=== PATIENT | female | born 1985 | race Caucasian/White ===

== ENCOUNTER 2022-02-23 01:58 | Day surgery (SDC) | payer BC, SELFPAY ==
[2022-02-10 14:19] VITALS: BMI 38.3
[2022-02-23 09:12] VITALS: BP 144/81; PULSE 67; RESP 18; TEMP 36.4; O2SAT 100; BMI 37.5
[2022-02-23] MEDS: LACTATED RINGERS 1,000 ML 150 ML IV CONT (09:34)
--- NOTE | 2022-02-23 09:48 | PM.HPGS ---
History of Present Illness History of Present Illness Consent: Risks, benefits, and alternatives have been discussed and questions answered. Patient agrees to proceed with procedure. Chief complaint: nausea, abdominal pain Narrative: Hilary Yap is a 37 year old female here for egd and colonoscopy, she has been having abdominal pain since she was in 2018 finally underwent cholecystectomy, apparently also ercp but no records. Never had colonoscopy, also ibs-c and nausea. Review of Systems Constitutional: Constitutional: Denies headache(s) and Denies weakness Eyes: Eyes: Denies blurry vision ENT: Reports Normal hearing present, Denies headache(s) and Denies neck pain Cardiovascular: Cardiovascular: Denies chest pain and Denies dyspnea Respiratory: Respiratory: Denies dyspnea Gastrointestinal: Gastrointestinal: Reports no additional gastrointestinal complaints Genitourinary: Genitourinary: Denies dysuria Musculoskeletal: Musculoskeletal: Denies neck pain Integumentary/Breasts: Skin/Breast: Denies dry skin Neurologic: Reports Normal hearing present, Denies headache(s) and Denies weakness Psychiatric: Psychiatric: Denies anxiety Endocrine: Endocrine: Denies change in body appearance Hematologic/Lymphatic: Hematologic/Lymphatic: Denies easy bleeding Allergic/Immunologic: Allergic/Immunologic: Denies urticaria PMF Past Medical History Medical History (Updated 01/06/22 @ 11:44 by Dae Pozo MD) Anxiety and depression GERD (gastroesophageal reflux disease) High blood pressure Nausea Peptic ulcer Surgical History Surgical History History of delivery History of cholecystectomy History of D&C History of endometrial ablation History of incisional hernia repair History of laparoscopy Family History Family History Father , age 69 Hypertension Family history of diabetes mellitus in first degree relative Heart disease Mother No problems noted. Social History Social History (Updated 01/06/22 @ 11:28 by Kaila Vaz CMA) Years smoked: 20 Smoking status: Former smoker Tobacco type: cigarettes Alcohol intake: current Alcohol use details: 0-1 Substance use: never Living arrangements: with family Additional occupation/education comments: [employer] Spiritual care concerns: No Meds Home Medications and Allergies Home Medications Medication Instructions Recorded Confirmed Type omeprazole 20 mg capsule,delayed 20 mg PO DAILY 11/18/21 02/23/22 History release ondansetron HCl 4 mg tablet 4 mg PO Q8H PRN #90 tablet 01/06/22 02/23/22 Rx Stool Softener 1 softgel PO PRN 02/10/22 02/23/22 History Allergies Allergy/AdvReac Type Severity Reaction Status Date / Time Sulfa (Sulfonamide Allergy Intermediate Hives Verified 02/23/22 09:23 Antibiotics) metoclopramide [From Reglan] AdvReac Mild panic Verified 02/23/22 09:23 attack Vital Signs Vital Signs - 24 hr 02/23/22 09:12 Temperature 97.5 F L Pulse Rate 67 Respiratory Rate 18 Blood Pressure 144/81 H Pulse Oximetry 100 Exam Const: General: comfortable and no acute distress HENMT: General nose exam: Normal nares present Eyes: General: appearance normal, both eyes and all related structures Neck: Neck: no JVD Resp: Auscultation: clear to auscultation bilaterally Cardio: Rate: regular rate Rhythm: regular rhythm GI: Inspection: non-distended GI Palp: Yes Soft to palpation Skin: General skin exam: normal color Neuro: General: gait normal Speech: normal speech Extrem: General: normal to inspection Psych: Mental Status: mental status grossly normal Assessment and Plan Assessment and plan (1) Abdominal pain: Qualifiers: Abdominal location: unspecified location Qualified
--- NOTE | 2022-02-23 09:50 | P.PNAN_ITS ---
Anes - Initial Pre Proc Eval Procedure: Operation Date: 02/23/22 10:30 Proposed Procedures p Esophagogastroduodenoscopy & Colonoscopy - Dae Pozo MD Date/Time: 02/23/22 09:50 Surgeon: Dae Pozo MD Pre Op Diagnosis: nausea, abdominal pain Patient Data Age: 37 Gender: F Height: 1.7 m Weight: 108.8 kg Last Vital Signs Temp 97.5 F L 02/23/22 09:12 Pulse 67 02/23/22 09:12 Resp 18 02/23/22 09:12 BP 144/81 H 02/23/22 09:12 Pulse Ox 100 02/23/22 09:12 Allergies Allergy/AdvReac Type Severity Reaction Status Date / Time Sulfa (Sulfonamide Allergy Intermediate Hives Verified 02/23/22 09:23 Antibiotics) metoclopramide [From Reglan] AdvReac Mild panic Verified 02/23/22 09:23 attack Home Medications Medication Instructions Recorded Confirmed Type omeprazole 20 mg capsule,delayed 20 mg PO DAILY 11/18/21 02/23/22 History release ondansetron HCl 4 mg tablet 4 mg PO Q8H PRN #90 tablet 01/06/22 02/23/22 Rx Stool Softener 1 softgel PO PRN 02/10/22 02/23/22 History Patient hx anesthesia problems: none Family hx anesthesia problems: none Results Review: All pre-operative results and documents have been reviewed as part of the pre-operative evaluation. [facility] Past Medical History Medical History (Updated 01/06/22 @ 11:44 by Dae Pozo MD) Anxiety and depression GERD (gastroesophageal reflux disease) High blood pressure Nausea Peptic ulcer Surgical History Surgical History History of delivery History of cholecystectomy History of D&C History of endometrial ablation History of incisional hernia repair History of laparoscopy Family History Family History Father , age 69 Hypertension Family history of diabetes mellitus in first degree relative Heart disease Mother No problems noted. Social History Social History (Updated 01/06/22 @ 11:28 by Kaila Vaz CMA) Years smoked: 20 Smoking status: Former smoker Tobacco type: cigarettes Alcohol intake: current Alcohol use details: 0-1 Substance use: never Living arrangements: with family Additional occupation/education comments: [employer] Spiritual care concerns: No Anes - Eval Final PreProcedure Day of Procedure 02/23/22 09:50 Patient weight: obese Heart: regular rate and rhythm Lungs: clear to auscultation Airway: Mallampati scale class II Neurological: alert and oriented Last oral intake: >/= 8 hours ASA classification: III Emergent: no Anesthetic plan: proceed Anesthesia type and monitoring: general GIVS and standard monitoring Results Review: All pre-operative results and documents have been reviewed as part of the pre-operative evaluation. Informed Consent: The patient's anesthetic plan and its attendant risks and benefits were discussed with the patient/family/POA. Questions were solicited and answers provided to the satisfaction of the patient/family/POA.
[2022-02-23 10:22] VITALS: BP 103/56; PULSE 56; RESP 19; O2SAT 100
[2022-02-23 10:32] VITALS: BP 119/77; PULSE 70; RESP 19; O2SAT 100
[2022-02-23 10:42] VITALS: BP 119/73; PULSE 68; RESP 16; O2SAT 100
== END 2022-02-23 11:20 | disposition home or self-care (01) ==
PROVIDERS: PCP Physician Assistant; Referring Provider Surgery; Visit Provider Internal Medicine Gastroenterology
PROC: 0DJ08ZZ Inspection of Upper Intestinal Tract, Via Natural or Artificial Opening Endoscopic (ICD-10-PCS; CPT 43235; principal; 2022-02-23 10:30)
DX: K58.9 Irritable bowel syndrome, unspecified (principal); K64.8 Other hemorrhoids; R14.0 Abdominal distension (gaseous); R10.84 Generalized abdominal pain; R11.0 Nausea; K21.9 Gastro-esophageal reflux disease without esophagitis; Z87.11 Personal history of peptic ulcer disease; E66.9 Obesity, unspecified; Z68.37 Body mass index [BMI] 37.0-37.9, adult; Z87.891 Personal history of nicotine dependence
CPT/HCPCS: 45378; 43239; 88305; J2001; J2704; J7120

== ENCOUNTER 2022-03-29 09:53 | Outpatient (CLI) | payer BC, SELFPAY ==
--- NOTE | ~2022-03-29 | NM_ITS ---
EXAM: NM gastric emptying study DATE: 03/29/2022 14:39 INDICATION: Nausea. TECHNIQUE: A gastric emptying study was performed using the methodology of Mervin SINCLAIR, et al. J Nucl Med 2007; 48:568-572. The patient was given a meal consisting of 2 scrambled eggs labeled with 0.972 mCi Tc-99m sulfur colloid, 2 slices of toast, two packages of jam, and approximately 120 mL of water . Simultaneous anterior and posterior 1-min images of the abdomen were obtained with the patient supi ne at multiple time points over a total period of 4 hours. The geometric mean of anterior and posteri or views was determined, and the percentage retention was calculated for each time point. COMPARISON: None. FINDINGS: Gastric retention of the radiotracer-labeled meal was 74%, 45%, and 28% at the 1-hour, 2-h our, and 4-hour time points, respectively. With this technique, apparent rapid gastric emptying is dye ggested by <30% gastric retention at 1 hour. Delayed gastric emptying is defined by gastric retention of >90% at 1 hour, >60% retention at 2 hours, or >10% retention at 4 hours. IMPRESSION: 1. Delayed gastric emptying. Reviewed, dictated and finalized at location A.
== END 2022-03-29 09:54 | disposition home or self-care (01) ==
PROVIDERS: Visit Provider Internal Medicine Gastroenterology
DX: K30 Functional dyspepsia (principal)
CPT/HCPCS: 78264; A9541

== ENCOUNTER 2024-05-28 13:08 | Outpatient (CLI) | payer OTHER, SELFPAY ==
--- NOTE | 2024-05-28 14:10 | NEURO_ITS ---
Impression: # Complains of numbness in all extremities. # Normal motor/sensory Nerve Conduction Study in all 4 extremities. # Normal needle/EMG exam. # Clinical correlation recommended. Nerve Conduction Studies Anti Sensory Summary Table Stim Site NR Peak (ms) P-T Amp (?V) Site1 Site2 Delta-P (ms) Dist (cm) Sea (m/s) Left Median Anti Sensory (2-3nd Digit) Wrist 2.8 59.6 Wrist 2-3nd Digit 2.8 14.0 50 Wrist 2.9 52.9 Wrist 2-3nd Digit 2.8 14.0 50 Right Median Anti Sensory (2-3nd Digit) Wrist 3.4 45.3 Wrist 2-3nd Digit 3.4 14.0 41 Wrist 3.1 28.4 Wrist 2-3nd Digit 3.4 14.0 41 Left Radial Anti Sensory (Base 1st Digit) Wrist 1.5 58.7 Wrist Base 1st Digit 1.5 0.0 Right Radial Anti Sensory (Base 1st Digit) Wrist 1.9 16.8 Wrist Base 1st Digit 1.9 0.0 Left Sup Fibular Anti Sensory (Ant Lat Mall) 14 cm 3.0 2.2 14 cm Ant Lat Mall 3.0 16.0 53 Right Sup Fibular Anti Sensory (Ant Lat Mall) 14 cm 3.0 10.6 14 cm Ant Lat Mall 3.0 16.0 53 Left Sural Anti Sensory (Lat Mall) Calf 3.3 12.8 Calf Lat Mall 3.3 16.0 48 Right Sural Anti Sensory (Lat Mall) Calf 3.5 16.5 Calf Lat Mall 3.5 16.0 46 Left Ulnar Anti Sensory (5th Digit) Wrist 2.4 50.8 Wrist 5th Digit 2.4 14.0 58 Right Ulnar Anti Sensory (5th Digit) Wrist 2.3 39.9 Wrist 5th Digit 2.3 14.0 61 Motor Summary Table Stim Site NR Onset (ms) O-P Amp (mV) Site1 Site2 Delta-0 (ms) Dist (cm) Sea (m/s) Left Median Motor (Abd Poll Brev) Wrist 3.4 2.4 Elbow Wrist 4.8 28.0 58 Elbow 8.2 2.9 Right Median Motor (Abd Poll Brev) Wrist 3.1 6.4 Elbow Wrist 4.9 27.0 55 Elbow 8.0 3.0 Left Peroneal Motor (Vastus Med) Ankle 3.9 2.4 Popit Ankle 7.1 39.0 55 Popit 11.0 2.1 Right Peroneal Motor (Vastus Med) Ankle 3.5 1.8 Popit Ankle 7.0 38.0 54 Popit 10.5 1.5 Left Tibial Motor (Abd Cueto Brev) Ankle 4.1 1.6 Knee Ankle 8.2 40.0 49 Knee 12.3 1.1 Right Tibial Motor (Abd Cueto Brev) Ankle 4.0 3.5 Knee Ankle 8.0 37.0 46 Knee 12.0 2.3 Left Ulnar Motor (Abd Dig Minimi) Wrist 2.3 8.2 A Elbow Wrist 5.2 30.0 58 A Elbow 7.5 6.0 Right Ulnar Motor (Abd Dig Minimi) Wrist 2.7 5.4 A Elbow Wrist 4.8 28.0 58 A Elbow 7.5 3.1 F Wave Studies NR F-Lat (ms) L-R F-Lat (ms) Left Median (Mrkrs) (Abd Poll Brev) 27.82 0.58 Right Median (Mrkrs) (Abd Poll Brev) 27.23 0.58 Left Peroneal (Mrkrs) (EDB) 46.84 1.57 Right Peroneal (Mrkrs) (EDB) 45.28 1.57 Left Tibial (Mrkrs) (Abd Hallucis) 46.92 0.03 Right Tibial (Mrkrs) (Abd Hallucis) 46.96 0.03 Left Ulnar (Mrkrs) (Abd Dig Min) 25.94 0.19 Right Ulnar (Mrkrs) (Abd Dig Min) 25.75 0.19 EMG Side Muscle Nerve Root Ins Act Fibs Amp Dur Recrt Comment Right 1stDorInt Ulnar C8-T1 Nml Nml Nml Nml Nml Right Ext Indicis Radial (Post Int) C7-8 Nml Nml Nml Nml Nml Right Ext Digitorum Radial (Post Int) C7-8 Nml Nml Nml Nml Nml Right BrachioRad Radial C5-6 Nml Nml Nml Nml Nml Right PronatorTeres Median C6-7 Nml Nml Nml Nml Nml Right Abd Poll Brev Median C8-T1 Nml Nml Nml Nml Nml Right ABD Dig Min Ulnar C8-T1 Nml Nml Nml Nml Nml Right AntTibialis Dp Br Fibular L4-5 Nml Nml Nml Nml Nml
== END 2024-05-28 13:09 | disposition home or self-care (01) ==
DX: G60.9 Hereditary and idiopathic neuropathy, unspecified (principal)
CPT/HCPCS: 95886; 95913

== ENCOUNTER 2025-07-18 02:15 | Day surgery (SDC) | payer OTHER, SELFPAY ==
[2025-07-09 09:05] VITALS: BMI 37.5
--- OUTSIDE RECORDS SUMMARY | 2025-07-18 02:19 | XMS_ITS | Encounter Summary ---
Author Organization [facility] Address [address] [place] [address] Care Team Providers Care Physician Extender Name Role Phone Jamison Lockett PA-C Primary Care Provider [phone] Encounter Details Date Type Department Care Team (Late st Contact Info) Description 06/29/2019 Hospital Follow-up Call [facility] Med/Surg [address] [place] [address] Roxann Valiente RN Social History Tobacco Use Types Packs/Day Years Used Date Smoking Tobacco: Former Smokeless Tobacco: Never Alcohol Use Standard Drinks/Week Comments No 0 (1 standard drink = 0.6 oz pur e alcohol) AUDIT-C Answer Date Recorded Frequency of Alcohol Consumption Never 05/22/2019 Average Number of Drinks Not on file 019 Frequency of Binge Drinking Not on file 05/09 Comments No Sex and Gender Information Value Date Recorded Sex Assigned at Not on file Legal Sex Female 7:52 PM CDT Gender Identity Not on file Sexual Orientation Not on file documented as of this encounter Functional Status * RETIRED Are you deaf or do you have serious difficulty hearing Answer Date of Assessment Author Status No 06/21/2019 4:02 PM CDT Activ e * RETIRED Are you blind or do you have serious difficulty seeing, even when wearing glasses? Answer Date of Assessment Author Status No 06/21/2019 4:02 PM CDT Activ e * Do you have serious difficulty walking or climbing stairs? Answer Date of Assessment Author Status No 06/21/2019 4:02 PM CDT Cooper Snyder RN Active * Do you have difficulty dressing or bathing? Answer Date of Assessment Author Status No 06/21/2019 4:02 PM MOET Snyder, Frederick, RN Active * Because of a physical, mental, or emotional condition, do you have difficulty doing errands alone such as visiting a doctor's office or shopping? Answer Date of Assessment Author Status No 06/21/2019 4:02 PM CDT Cooper Snyder RN Active documented as of this encounter Mental Status * Because of a physical, mental, or emotional condition, do you have serious difficulty concentrating, remembering, or making decisions? 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
--- OUTSIDE RECORDS SUMMARY | 2025-07-18 02:19 | XMS_ITS | Encounter Summary ---
Author Organization [facility] Address [address] [place] [address] Care Team Providers Care Sales Service Assistant Name Role Phone Jamison Lockett PA-C Primary Care Provider [phone] Encounter Details Date Type Department Care Team (Late st Contact Info) Description 08/07/2019 Therapy Plan [facility] [address] [place] [address] Joe Ndiaye MD [address] [place] [phone] Social History Tobacco Use Types Packs/Day Years [...] Answer Date of Assessment Author Status No 07/22/2019 6:37 PM CDT Activ e * RETIRED Are you blind or do you have serious difficulty seeing, even when wearing glasses? Answer Date of Assessment Author Status No 07/22/2019 6:37 PM CDT Activ e * Do you have serious difficulty walking or climbing stairs? Answer Date of Assessment Author Status No 07/22/2019 6:37 PM CDT Melissa Matthew RN Active * Do you have difficulty dressing or bathing? Answer Date of Assessment Author Status No 07/22/2019 6:37 PM Melissa Muñoz RN Active * Because of a physical, mental, or emotional condition, do you have difficulty doing errands alone such as visiting a doctor's office or shopping? Answer Date of Assessment Author Status No 07/22/2019 6:37 PM Melissa Muñoz RN Active documented as of this encounter Mental Status * Because of a physical, mental, or emotional condition, do you have serious difficulty concentrating, remembering, or making decisions? Answer Entry Date Author Status No 07/22/2019 6:37 PM Melissa Muñoz RN Active documented in this encounter Plan of Treatment Not on file documented as of this encounter Visit Diagnoses Not on filedocumented in this encounter Additional Health Concerns Infection Onset Date Last Indicated Resolved Time MRSA Comment:09/12/19- + abdominal wound 09/19/19- + abdominal wound 09/16/2019 09/16/2019 COVID-19 Rule Out 06/17/2020 06/11/2020 06/17/2020 7:27 AM CDT COVID-19 Rule Out 02/08/2021 02/08/2021 08/30/2021 6:25 PM MASSEUR/MASSEUSE COVID-19 Rule Out 02/08/2021 02/08/2021 08/30/2021 6:27 PM MASSEUR/MASSEUSE COVID-19 Rule Out 12/25/2023 12/25/2023 12/25/2023 8:57 AM CDT documented as of this encounter Care Teams Sales Service Assistant Relationship Specialty Start Date End Date Jamison Lockett PA-C PCP - General 01/09/19 documented as of this encounter
--- OUTSIDE RECORDS SUMMARY | 2025-07-18 02:19 | XMS_ITS | Clinical Summary ---
Author Organization [facility] Address [address] [place] [address] Care Team Providers Care Rail Flaw Detector Operator Name Role Phone Jamison Lockett PA-C Primary Care Provider [phone] Source Comments [facility],non-owned Affiliates and Associated Physician Practices is amultiple site organization consisting of ambulatory clinics and hospital sitesin [place], [place], [place] and [place]. This disclosure is being madepursuant to the Care Everywhere program and may not contain all information available regarding this patient. Last updated 18.[facility] Allergies Active Allergy Reactions Criticality Noted Date Comments Metoclopramide Rash,Other High 11/19/2012 tachycardia , arrhythmia's Sulfa Drugs Urticaria Medium 01/03/2018 Medications * Be aware that medications may not be up to date on this document. Alwaysverify current medications with the patient. calcium carbonate (TUMS) 500 MG chew tablet Take by mouth 3 times daily as needed for Heartburn Active lisinopril-hydr oCHLOROthiazide (PRINZIDE; ZESTORETIC) 10-12.5 MG tablet Take 1 tablet by mouth once daily Active ibuprofen (MOTRIN) 800 MG tablet Take 1 tablet by mouth every 6 hours as needed for Pain 60 tablet 0 Active Active Problems Patient Care Coordination No te Formatting of this note migh t be different from the original. NOPP-MFCC 12/2017 Problem Noted Date Diagnosed Date Menorrhagia with irregular cycle 08/28/2020 Chronic hypertension 02/01/2018 History of thrombocytopenia 09/06/2012 Overview (02/01/2018): On Lovenox plts 162 on 12/19/17 History of section 05/10/2012 Overview (08/02/2012): Need op report Desires repeat Antiphospholipid antibody positive 05/10/2012 Overview (10/15/2012): Anti Factor 10a: less than 0.15 Component Name 10/08/12 0946 09/06/12 1053 06/07/12 1145 WBC 7.4 6.9 8.1 HGB 12.0 12.6 13.5 HCT 34.3* 37.0 37.8 PLTCOUNT 136* 128* 150 Resolved Problems Problem Noted Date Diagnosed Date Resolved Date Abdominal pain, generalized 01/20/2019 08/25/2020 Decreased movements in third trimester 8 08/25/2020 02/15/2018 07/17/2018 History of gestational diabe karie mellitus (GDM) 02/01/2018 08/25/2020 Overview (02/01/2018): In previous . Was on glyburide Supervision of high risk pre gnancy in first trimester 02/01/2018 08/25/2020 Gestational diabetes mellitus 10/29/2012 02/01/2018 Overview (11/05/2012): Glyburide started 11/05/12 Supervision of other high-risk 05/10/2012 02/01/2018 Overview (08/16/2015): Dating by LMP = documented 6wk US (Girl) Prenatals: B+/I/-/-, HIV NR Ab: neg Pap: neg 05/10/12 GC/CT: neg/neg H/H/Plt: 13.6/37.7/160 (05/03/12); 12/34.3/136 (10/08) QS: declines any testing including amnio GCT: 94 GBS: neg ALT/AST: 46/24 12/03 Obesity in 05/10/2012 020 Encounter for anatomic survey 07/17/2018 20 weeks gestation of 07/17/2018 Evaluate anatomy not seen on prior sonogram 07/17/2018 28 weeks gestation of 07/17/2018 Hypertension affecting pregn elma in third trimester 08/25/2020 32 weeks gestation of 07/17/2018 Oligohydramnios in third trimester 08/25/2020 Immunizations Immunization Administration Dates Next Due INFLUENZA VACCINE 07/05/2012 INFLUENZA VACCINE, QUADR. (F LUZONE; FLULAVAL; FLUARIX; AFLURIA QUADRIVALENT; 6MO+), 0.5 ML (IIV4) 07/16/2018 TDAP (7yrs+) 06/04/2018,12/11/2012 Family History Medical History Relation Name Comments Diabetes Father Hyperlipidemia Father Hypertension Father Clotting Disorder Sister Relation Name Status Comments Father Sister Social History Tobacco Use Types Packs/Day Years Used Date Smoking Tobacco: Every Day Cigarettes 0.5 18 Smokeless Tobacco: Never Tobacco Cessation:Counseling Given: Yes Alcohol Use Standard Drinks/Week Comments No 0 (1 standard drink = 0.6 oz pur e alcohol) Comments No Sex and Gender Information Value Date Recorded Sex Assigned at Not on file Legal Sex Female 6:30 AM SAFETY PERSON Gender Identity Not on file Sexual Orientation Not on file Last Filed Vital Signs Vital Sign Reading Time Taken Comments Blood Pressure 120/76 08/28/2020 9:45 AM SAFETY PERSON Pulse 57 08/28/2020 9:45 AM SAFETY PERSON Temperature 36.8 C (98.2 F) 08/28/2020 9:12 AM SAFETY PERSON Respiratory Rate 17 08/28/2020 9:05 AM SAFETY PERSON Oxygen Saturation 99% 08/28/2020 9:45 AM SAFETY PERSON Inhaled Oxygen Concentration 98% 12/11/2012 1 2:05 AM SAFETY PERSON Weight 94.4 kg (208 lb 1.8 oz) 08/28/2020 6:35 AM SAFETY PERSON Height 170.2 cm (5' 7) 08/28/2020 6:35 AM SAFETY PERSON Body Mass Index 32.6 08/28/2020 6:35 AM SAFETY PERSON Plan of Treatment Upcoming Encounters Date Type Department Care Team (Late st Contact Info) Description 07/29/2025 8:30 AM CDT Appointment [facility] [address] [place] [address] Chayito Reynolds Gertrudis, TRANSACTIONAL ATTORNEY-STUDENT ACCOUNTS MANAGER [address] [id number] Health Maintenance Due Date Last Done Comments HEPATITIS C SCREENING 02/08/2005 HEPATITIS B VACCINE (1 of 3 - 19+ 3-dose series) 2006 PNEUMOCOCCAL VACCINE (1 of 2 - PCV) 2006 HPV VACCINE (1 - 3-dose SCDM series) 2014 PAP with HPV 02/01/2023 02/01/2018 DEPRESSION SCREENING 10/09/2024 COVID-19 VACCINE (1 - 2023-2 5 season) 2025 INFLUENZA VACCINE (#1) 2025 8, 07/05/2012 DTAP/TDAP/TD VACCINES (3 - T d or Tdap) 06/04/2028 06/04/2018, 12/11/2012 ZOSTER VACCINE (1 of 2) 2037 HIV SCREENING Completed 06/04/2018, 02/15/2018 HIB VACCINE Aged Out No longer eligi ble based on patient's age to complete this topic MENINGOCOCCAL (Group B) VACCINE SHARED DECISION-MAKING Aged Out No longer eligible based on patient's age to complete this topic MENINGOCOCCAL GROUPS A/C/Y/W VACCINE Aged Out No longer eligible b ased on patient's age to complete this topic Medical Devices Implanted Type Area Case Management Rn Device Identifier Shelf Expiration Date Model / Serial / Lot Patch Srg Sgprg Opn Bioresbl Slf Xpd Implanted:Qty: 1 on 01/25/2019 by Gisele Liu MD at [facility] N/A: Abdomen [employer] 05/05/2019 [id number] / / [id number] Procedures Procedure Name Priority Date/Time Associated Diagnosis Comments HIV-1 HIV-2 ANTIBODY + HIV P24 AG PANEL Routine 06/04/2018 12:26 PM CDT Supervision of high-risk , third trimester PAP LB HPV HR DNA Routine 02/01/2018 11: 17 AM CDT , unspecified gestational age from Last 3 Months or Most Recently Relevant to Health Maintenance Results * HIV-1 HIV-2 ANTIBODY + HIV P24 AG PANEL (06/04/2018 12:26 PM CDT) HIV1/2 Ab + P24 Ag Non Reactive Non Reactive 06/04/2018 4:57 PM CDT [facility] Blood BLOOD SPECIMEN / Unknown Venipuncture / Unknown 06/04/2018 12:26 PM CDT 06/04/2018 12:35 PM CDT Narrative [facility] - 06/04/2018 4:57 PM CDT No Laboratory evidence of HIV infection. us Abigail Sánchez MD LAB - CHEMISTRY ORDERABLES nal Result [facility] [address] [place] [id number] * PAP LB HPV HR DNA (02/01/2018 11:17 AM CDT) Diagnosis Comment 02/07/2018 3:17 PM CDT [facility] ([facility]) Comment:NEGATIVE FOR INTRAEP ITHELIAL LESION AND MALIGNANCY. Specimen Adequacy Comment 018 3:17 PM CDT [facility] ([facility]) Comment: Satisfactory for evaluation. Endocervical and/or squamous metaplastic cells (endocervical component) are present. Performed by Comment 02/07/2018 3:17 PM CDT [facility] ([facility]) Comment:Anisa Gipson, Cyto technologist (ASCP) Comment . 02/07/2018 3:17 PM CDT [facility]) Note Comment 02/07/2018 3:17 PM CDT [facility] ([facility]) Comment: The Pap smear is a screening test designed to aid in the detection of premalignant and malignant conditions of the uterine cervix. It is not a diagnostic procedure and should not be used as the sole means of detecting cervical cancer. Both false-positive and false-negative reports do occur. Human papillomavirus High Risk Negative Negative 02/07/2018 3:17 PM CDT [facility] ([facility]) Comment: This high-risk HPV test detects thirteen high-risk types (16/18/31/33/35/39/45/51/52/56/58/59/68) without differentiation. Pathology/Cytolo gy ENTIRE ENDOCERVIX / Unknown Collection / Unknown 02/01/2018 11:17 AM CDT 02/01/2018 11:56 AM CDT Narrative [facility] ([facility]) - 02/07/2018 3:17 PM CDT Performed at: - [address] [id number] Percussion Tuner: Page Montejo MD, Phone: [phone] Performed at: - [facility] [id number] Percussion Tuner: Page Montejo MD, Phone: [phone] Specimen Comment: Source.............Endocervix Specimen Comment: No. of containers..01 ThinPrep Vial Pita Song TRANSACTIONAL ATTORNEY-STUDENT ACCOUNTS MANAGER LAB - PATHOLOGY/CYTOLOGY ORDERABLES Final Result [facility] ([facility]) [address] [place] [address] from Last 3 Months or Most Recently Relevant to Health Maintenance Insurance [employer] MEDICA[employer] - [place] Advance Directives * Full Code (Latest Code Status on File) Date Activated Date Inactivated Comments 01/20/2019 7:36 PM 01/21/2019 1:56 PM * Full Code Date Activated Date Inactivated Comments 08/09/2018 3:57 PM 08/11/2018 3:16 PM * Full Code Date Activated Date Inactivated Comments 07/24/2018 7:15 PM 07/24/2018 11:05 PM * Full Code Date Activated Date Inactivated Comments 03/29/2018 7:09 PM 03/31/2018 1:40 AM * Full Code Date Activated Date Inactivated Comments 03/29/2018 5:08 PM 03/29/2018 7:09 PM Care Teams Rail Flaw Detector Operator Relationship Specialty Start Date End Date Jamison Lockett PA-C [address] [place] [phone] PCP - General Physician Numerical Control Programmer 01/17/19
--- OUTSIDE RECORDS SUMMARY | 2025-07-18 02:19 | XMS_ITS | Clinical Summary ---
Author Organization [facility] Address [address] [place] [address] Care Team Providers Care Master [place] Name Role Phone Jamison Lockett PA-C Primary Care Provider [phone] Allergies Active Allergy Reactions Criticality Noted Date Comments Metoclopramide Shortness of Breath High 06/18/2019 Sulfa Antibiotics Hives High 10/12/2017 Medications famotidine 20 MG tablet Take 1 tablet (20 mg total) by mouth 2 (two) times daily. 20 tablet 0 Active FLUoxetine (PROZAC) 20 MG capsule Take 1 capsule (20 mg total) by mouth every morning. Active FLUoxetine (PROZAC) 40 MG capsule Take 1 capsule (40 mg total) by mouth nightly at bedtime. Active promethazine (PHENERGAN) 25 MG tablet Take 1 tablet (25 mg total) by mouth every 6 (six) hours as needed (nausea, vomiting, abdominal pain). 30 tablet 4 Active ondansetron (ZOFRAN) 4 MG tablet Take 1 tablet (4 mg total) by mouth every 8 (eight) hours as needed for Nausea. 20 tablet 4 Active lisinopril (PRINIVIL) 10 MG tablet Take 1 tablet (10 mg total) by mouth daily. 5 Active Active Problems Problem Noted Date Diagnosed Date Facial laceration 09/03/2024 Intractable nausea and vomiting 03/01/2024 Acute cholecystitis 08/20/2019 Calculus of gallbladder with chronic cholecystitis without obstruction 08/13/2019 Overview (08/13/2019): Added automatically from request for surgery [id number] Vitamin K deficiency 08/06/2019 Antiphospholipid antibody syndrome (HHS/HCC) Cholecystitis 07/21/2019 Abdominal pain 07/21/2019 Pancreatitis ([facility]) 06/21/2019 Choledocholithiasis 06/19/2019 Common bile duct stone 06/18/2019 Cholelithiasis 06/18/2019 Incisional hernia without obstruction or gangren e 01/09/2019 Right lower quadrant abdominal pain 01/09/2019 Chronic hypertension 02/01/2018 History of gestational diabetes mellitus (GDM) 0 02/01/2018 Overview (06/18/2019): Overview: In previous . Was on glyburide Acute URI 10/12/2017 Overview (06/18/2019): Date Onset: 10/12/2017 Tobacco abuse 06/16/2015 Overview (06/18/2019): Date Onset: 06/16/2015 History of thrombocytopenia 09/06/2012 Overview (06/18/2019): Overview: On Lovenox plts 162 on 12/19/17 Antiphospholipid antibody positive 05/10/2012 Overview (06/18/2019): Overview: Anti Factor 10a: less than 0.15 Component Name 10/08/12 0946 09/06/12 1053 06/07/12 1145 WBC 7.4 6.9 8.1 HGB 12.0 12.6 13.5 HCT 34.3* 37.0 37.8 PLTCOUNT 136* 128* 150 History of section 05/10/2012 Overview (06/18/2019): Overview: Need op report Desires repeat Obesity in ([facility]) 05/10/2012 Encounters Date Type Department Care Team Description 06/09/2025 7:03 PM CDT - 06/09/2025 10:53 PM CDT Emergency [facility] Emergency Services [facility] [address] [address] Renaldo Gleason MD Vomiting Discharge Disposition: Home or Self Care (Routine Discharge) 06/09/2025 Travel from Last 3 Months Immunizations Immunization Administration Dates Next Due Tdap (Generic) 05/03/2022 Family History Medical History Relation Comments COPD Father Diabetes Father Heart Disease Father Hyperlipidemia Father Hypertension Father Heart Disease Mother Hyperlipidemia Mother Hypertension Mother Mental Health Mother Relation Status Comments Father Mother Social History Tobacco Use Types Packs/Day Years Used Date Smoking Tobacco: Former Cigarettes 1 15 2 006 - 2020 Smokeless Tobacco: Never Tobacco Cessation:Counseling Given: Yes Alcohol Use Standard Drinks/Week Comments No 0 (1 standard drink = 0.6 oz pur e alcohol) B1300 Health Literacy Answer Date Recor ded How often do you need to hav e someone help you when you read instructions, pamphlets, or other written material from your doctor or pharmacy? Never 03/01/2024 [facility] Utilities Answer Date Recorded In the past 12 months has e [employer], gas, oil, or water [email or web address] threatened to shut off services in your home? No 03/02/2024 Humiliation, Afraid, Rape, and Kick questionnair e Answer Date Recorded Within the last year, have y ou been afraid of your partner or ex-partner? No 03/01/2024 Within the last year, have y ou been humiliated or emotionally abused in other ways by your partner or ex-partner? No Within the last year, have y ou been kicked, hit, slapped, or otherwise physically hurt by your partner or ex-partner? No 03/01/2024 Within the last year, have y ou been raped or forced to have any kind of sexual activity by your partner or ex-partner? No 03/01/2024 Social Connection and Isolation Panel [NHANES] A nswer Date Recorded In a typical week, how many times do you talk on the phone with family, friends, or neighbors? Twice a week 03/02/2024 How often do you get together with friends or re latives? Once a week 03/02/2024 How often do you attend jehovah's witness or anglican serv ices? Never 03/02/2024 Do you belong to any clubs o r organizations such as jehovah's witness groups, unions, fraternal or athletic groups, or school groups? No 03/02/2024 How often do you attend meet ings of the clubs or organizations you belong to? Never 03/02/2024 Are you , , di vorced, , never , or living with a partner? 03/02/2024 AUDIT-C Answer Date Recorded Q1: How often do you have a drink containing alcohol? Never 03/01/2024 Q2: How many drinks containi ng alcohol do you have on a typical day when you are drinking? Patient does not drink Q3: How often do you have si x or more drinks on one occasion? Never 03/01/2024 Overall Financial Resource Strain (CARDIA) Answe r Date Recorded How hard is it for you to pa y for the very basics like food, housing, medical care, and heating? Not hard at all 03/01/2024 PHQ-2 Answer Date Recorded Patient Health Questionnaire-2 Score 0 03/02/2024 [facility] - Occupational Stress Questionnaire Answer Date Recorded Do you feel stress - tense, restless, nervous, or anxious, or unable to sleep at night because your mind is troubled all the time - these days? Not at all 03/02/2024 Exercise Vital Sign Answer Date Recorde d On average, how many days pe r week do you engage in moderate to strenuous exercise (like a brisk walk)? 2 days 03/02/2024 On average, how many minutes do you engage in exercise at this level? 40 min 03/02/2024 Hunger Vital Sign Answer Date Recorded Within the past 12 months, y ou worried that your food would run out before you got the money to buy more. Never true 03/02/20 24 Within the past 12 months, t he food you bought just didn't last and you didn't have money to get more. Never true 03/02/2024 PRAPARE - Transportation Answer Date Re corded In the past 12 months, has l ack of transportation kept you from medical appointments or from getting medications? No 02/07 In the past 12 months, has l ack of transportation kept you from meetings, work, or from getting things needed for daily living? No 03/02/2024 Housing Stability Vital Sign Answer Júnior e Recorded In the last 12 months, was t here a time when you were not able to pay the mortgage or rent on time? No 03/02/2024 In the past 12 months, how m any times have you moved where you were living? 1 03/02/2024 At any time in the past 12 m [facility], were you homeless or living in a skilled nursing (including now)? No 03/02/2024 Comments No Sex and Gender Information Value Date Recorded Sex Assigned at Not on file Legal Sex Female 7:52 PM CDT Gender Identity Not on file Sexual Orientation Not on file Last Filed Vital Signs Vital Sign Reading Time Taken Comments Blood Pressure 122/86 06/09/2025 7:05 PM CDT Pulse 88 06/09/2025 7:05 PM CDT Temperature 36.3 C (97.3 F) 06/09/2025 7:05 PM CDT Respiratory Rate 20 06/09/2025 7:05 PM CDT Oxygen Saturation 84% 06/09/2025 7:10 PM CDT Inhaled Oxygen Concentration - - Weight 104.3 kg (230 lb) 06/09/2025 7:05 PM CDT Height 170.2 cm (5' 7) 06/09/2025 7:05 PM CDT Body Mass Index 36.02 06/09/2025 7:05 PM CDT Plan of Treatment Health Maintenance Due Date Last Done Comments Cervical Cancer Screening Pap Smear (Age 30 to 64) Every 3 Years 1987 Annual Physical 1990 Hepatitis C 2005 HPV Vaccines (1 - 3-dose SCDM series) 2014 Cervical Cancer Screening Pap with HPV Testing (Age 30 to 64) Every 5 Years 2017 Cervical Cancer Screening with HPV 2017 COVID-19 Vaccine ( season) 2025 Influenza Adult (#1) 2025 07/16/2018, 07/05/20 12 DTaP, Tdap and Td Vaccines (11 - Td or Tdap) 05/03/2032 05/03/2022, 06/04/2018, 10/22/2017, Additional history exists Hepatitis B Vaccines Completed 05/26/1997, 08/30/1996, 07/30/1996 Meningococcal B Vaccine Aged Out No l onger eligible based on patient's age to complete this topic Meningococcal Vaccine Aged Out No viviane eren eligible based on patient's age to complete this topic Pneumococcal Vaccine: Pediatrics (0 to 5 Years) and At-Risk Patients (6 to 49 Years) Aged Out No longer eligible based on patient's age to complete this topic RSV Immunizations Under 20 Months Aged Out No longer eligible based on patient's age to complete this topic Medical Devices Implanted Type Area Human Relations Manager Device Identifier Shelf Expiration Date Model / Serial / Lot Stent Pancreatic 4fr 5cm Straight No Lead Haritha Drainage Hole Advan[employer] Polymer Sterile Disposable Accepts .035in Guidewire - [id number] Implanted:Qty: 1 on 06/19/2019 by Joey Lara MD at [facility] Stent [employer] JORDAN 03/01/2020 [id number] / / [id number] Procedures Procedure Name Priority Date/Time Associated Diagnosis Comments ECG 12-LEAD Routine 06/09/2025 10:06 PM CDT URINALYSIS MICRO ONLY Routine 06/09/2025 7:24 PM CDT TEST URINE STAT 06/09/2025 7:24 PM CDT URINALYSIS AUTO DIP STAT 06/09/2025 7 :24 PM CDT LIPASE STAT 06/09/2025 7:24 PM CDT COMPREHENSIVE METABOLIC PANEL STAT 06/09/2025 7:24 PM CDT CBC W/DIFF AUTOMATED STAT 06/09/2025 7:24 PM CDT from Last 3 Months Results * ECG 12 lead (06/09/2025 10:06 PM CDT) 06/09/2025 10:0 6 PM CDT Narrative [facility] RAD - 06/10/2025 8:54 AM CDT HFG Test Date: 2025-06-09 Pat Name: NAIF OHARA Department: 100 Room: [facility] Gender: Female Day Care Home Mother: : 1985 Requested By: RENALDO GLEASON Order Number: [id number] Reading MD: Mic Bautista Measurements Intervals [place] Rate: 80 P: 20 MS: 149 QRS: 50 QRSD: 99 T: 41 QT: 378 QTc: 439 Interpretive Statements SINUS RHYTHM WITH SINUS ARRHYTHMIA COMPARED TO PREVIOUS TRACING No significant change Procedure Note Mic Bautista MD - 06/10/2025 HFG Test Date: 2025-06-09 Pat Name: NAIF OHARA Department: 100 Room: [facility] Gender: Female Day Care Home Mother: : 1985 Requested By: RENALDO GLEASON Order Number: [id number] Reading MD: Mic Bautista Measurements Intervals [place] Rate: 80 P: 20 MS: 149 QRS: 50 QRSD: 99 T: 41 QT: 378 QTc: 439 Interpretive Statements SINUS RHYTHM WITH SINUS ARRHYTHMIA COMPARED TO PREVIOUS TRACING No significant change us Renaldo Gleason MD ECG ORDERABLES Final Resul t Performing Organization Address [facility] de Phone Number [address] [place] [address] * TEST URINE (06/09/2025 7:24 PM CDT) Pathologist [facility] URINE HCG TEST NEGATIVE NEGATIVE 06/09/2025 7:47 PM CDT [facility] Comment: VERY DILUTE URINE SPECIMENS MAY NOT CONTAIN DELIVERY ROOM CLERK LEVELS OF HCG. IF IS STILL SUSPECTED, A SERUM HCG TEST IS RECOMMENDED. URINE SPECIMEN FROM URETHRA / Unknown 06/09/2025 7:24 PM CDT us Renaldo Gleason MD URINE ORDERABLES Final Resu lt Performing Organization Address [facility] [place] [address], * (ABNORMAL) URINALYSIS AUTO DIP (06/09/2025 7:24 PM CDT) COLOR (U) YELLOW YELLOW 06/09/2025 7:37 PM CDT [facility] TRANSPARENCY HAZY(A) CLEAR 06/09/2025 7:37 PM CDT [facility] SPECIFIC GRAVITY (U) 1.030 1.001 - 1.030 06/09/2025 7:37 PM CDT [facility] Comment:EQUAL TO OR GREATER THAN U PH 6.0 5.0 - 9.0 06/09/2025 7:37 PM CDT [facility] LEUKOCYTES (U) NEGATIVE NEGATIVE 06/09/2025 7:37 PM CDT [facility] NITRITES NEGATIVE NEGATIVE 06/09/2025 7:37 PM CDT [facility] PROTEIN RANDOM (U) 1+(A) NEGATIVE 06/09/2025 7:37 PM CDT [facility] GLUCOSE (U) NORMAL NORMAL 06/09/2025 7:37 PM CDT [facility] KETONES MG/DL (U) 1+(A) NEGATIVE 06/09/2025 7:37 PM CDT [facility] UROBILINOGEN NORMAL NORMAL EU/DL 06/09/2025 7:37 PM CDT [facility] BILIRUBIN (U) NEGATIVE NEGATIVE 06/09/2025 7:37 PM CDT [facility] BLOOD (U) NEGATIVE NEGATIVE 06/09/2025 7:37 PM CDT [facility] URINE MICROSCOPIC URINE MICROSCOPIC TO FOLLOW. 06/09/2025 7:37 PM CDT [facility] URINE SPECIMEN OBTAINED BY CLEAN CATCH PROCEDURE / Unknown 06/09/2025 7:24 PM CDT us Renaldo Gleason MD URINE ORDERABLES Final Resu lt [address] [place] [address], [place] * URINALYSIS MICRO ONLY (06/09/2025 7:24 PM CDT) WBC/HPF 0 <6 /HPF 06/10/2025 11:45 AM CDT [facility] RBC/HPF 0 <6 /HPF 06/10/2025 11:45 AM CDT [facility] MUCUS MODERATE /LPF 06/10/2025 10:44 AM CDT [facility] AMORPHOUS CRYSTAL MODERATE /HPF 06/10/2025 10:44 AM CDT [facility] 06/09/2025 7:24 PM CDT us Renaldo Gleason MD URINE ORDERABLES Final Resu lt [facility] [address] [place] [address], * (ABNORMAL) COMPREHENSIVE METABOLIC PANEL (06/09/2025 7:24 PM CDT) GLUCOSE 174(H) 70 - 99 MG/DL 06/09/2025 7:48 PM CDT [facility] BUN 18 7 - 18 MG/DL 06/09/2025 7:48 PM CDT [facility] CREATININE S/P/B 0.99 0.50 - 1.20 MG/DL 06/09/2025 7:48 PM CDT [facility] SODIUM S/P/B 139 136 - 145 MMOL/L 06/09/2025 7:48 PM CDT [facility] POTASSIUM S/P/B 3.6 3.5 - 5.1 MMOL/L 06/09/2025 7:48 PM CDT [facility] CHLORIDE S/P/B 105 100 - 108 MMOL/L 06/09/2025 7:48 PM CDT [facility] CO2 21.3 21.0 - 32.0 MMOL/L 06/09/2025 7:48 PM CDT [facility] CALCIUM S/P/B 9.9 8.5 - 10.1 MG/DL 06/09/2025 7:48 PM CDT [facility] BILIRUBIN TOTAL S/P/B 0.7 0.2 - 1.2 MG/DL 06/09/2025 7:48 PM CDT [facility] Comment: THIS ASSAY IS NOT RECOMMENDED FOR PATIENTS UNDERGOING TREATMENT WITH ELTROMBOPAG DUE TO THE POTENTIAL FOR FALSELY ELEVATED RESULTS. TOTAL PROTEIN S/P/B 7.7 6.4 - 8.2 G/DL 06/09/2025 7:48 PM CDT [facility] ALBUMIN S/P/B 4.2 3.4 - 5.0 G/DL 06/09/2025 7:48 PM CDT [facility] AST 21 15 - 37 U/L 06/09/2025 7:48 PM CDT [facility] ALT 36 14 - 55 U/L 06/09/2025 7:48 PM CDT [facility] ALKALINE PHOSPHATASE S/P/B 121 50 - 136 U/L 06/09/2025 7:48 PM CDT [facility] ANION GAP 12.7 5.0 - 15.0 MMOL/L 06/09/2025 7:48 PM CDT [facility] BUN CREATININE RATIO 18.2 6 - 26 06/09/2025 7:48 PM T [facility] A/G RATIO 1.2 1.0 - 2.5 RATIO 06/09/2025 7:48 PM T [facility] GFR ESTIMATE 75(L) >90 ML/MIN/1.7 3 M2 06/09/2025 7:48 PM T [facility] Comment: NOTE: eGFR is not calculated for patients <18 years of age. This is an estimated GFR calculation using the new CKD EPI creatinine equation without race and so does not require a correction factor for race. This estimated GFR should not be used for calculating drug doses. 06/09/2025 7:24 PM CDT us Renaldo Gleason MD LABORATORY Final Resul t [facility] [address] [place] [address], * (ABNORMAL) CBC W/DIFF AUTOMATED (06/09/2025 7:24 PM CDT) WBC 10.95 4.50 - 11.00 x10'3/uL 06/09/2025 7:33 PM CDT [facility] RBC 4.94 4.00 - 5.20 x10'6/uL 06/09/2025 7:33 PM CDT [facility] HGB 13.5 12.0 - 16.0 G/DL 06/09/2025 7:33 PM CDT [facility] HCT 39.4 38.0 - 48.0 % 06/09/2025 7:33 PM CDT [facility] MCV 79.8(L) 80.0 - 100.0 FL 06/09/2025 7:33 PM CDT [facility] MCH 27.3 26.0 - 34.0 PG 06/09/2025 7:33 PM CDT [facility] MCHC 34.3 31.0 - 37.0 G/DL 06/09/2025 7:33 PM CDT [facility] RDW 13.1 11.6 - 14.8 % 06/09/2025 7:33 PM CDT [facility] PLT 217 130 - 400 x10'3/uL 06/09/2025 7:33 PM CDT [facility] MPV 12.4(H) 7.0 - 12.0 FL 06/09/2025 7:33 PM CDT [facility] CBC COMMENT AUTOMATED RBC MORPHOLOGY AND PLATELET EVALUATION NORMAL 06/09/2025 7:33 PM CDT [facility] NEUTROPHILS % 86.2(H) 40.0 - 74.0 % 06/09/2025 7:33 PM CDT [facility] LYMPHOCYTES % 9.5(L) 14.0 - 46.0 % 06/09/2025 7:33 PM CDT [facility] MONOCYTES % 3.6(L) 4.0 - 13.0 % 06/09/2025 7:33 PM CDT [facility] EOSINOPHILS 0.0 0.0 - 7.0 % 06/09/2025 7:33 PM CDT [facility] BASOPHILS 0.4 0.0 - 3.0 % 06/09/2025 7:33 PM CDT [facility] IMMATURE GRANS % 0.3 0.0 - 0.43 % 06/09/2025 7:33 PM CDT [facility] NRBC % 0.0 % 06/09/2025 7:33 PM CDT [facility] ABS. NEUTROPHILS TOTAL 9.45(H) 1.69 - 7.81 x10'3/uL 06/09/2025 7:33 PM CDT [facility] ABS. LYMPHOCYTES 1.04 0.21 - 5.42 x10'3/uL 06/09/2025 7:33 PM CDT [facility] ABS. MONOCYTES 0.39 0.04 - 1.37 x10'3/uL 06/09/2025 7:33 PM CDT [facility] ABS. EOSINOPHILS 0.00 0.00 - 0.68 x10'3/uL 06/09/2025 7:33 PM CDT [facility] ABS. BASOPHILS 0.04 0.00 - 0.08 x10'3/uL 06/09/2025 7:33 PM CDT [facility] ABS. IMMATURE GRANULOCYTES 0.03 0.00 - 0.06 x10'3/uL 06/09/2025 7:33 PM CDT [facility] ABS. NUCLEATED RBC'S 0.00 0.00 - 0.01 x10'3/uL 06/09/2025 7:33 PM CDT [facility] 06/09/2025 7:24 PM CDT Renaldo Gleason MD LABORATORY Final Resul t Performing Organization Address City/[facility]/ZIP Co de Phone Number [facility] [address] [facility] [place] [address], * LIPASE (06/09/2025 7:24 PM CDT) LIPASE 26 16 - 77 UNITS/L 06/09/2025 7:48 PM CDT [facility] 06/09/2025 7:24 PM CDT Renlado Gleason MD LABORATORY Final Resul t Performing Organization Address [facility] Co de Phone Number 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/12/19- + abdominal wound 09/19/19- + abdominal wound 09/16/2019 09/16/[address] [place] [place] [place] [address] Advance Directives Documents on File Type Date Recorded Patient Manager Intermediate Expl anation Advance Directives and Living Will 12/13/2017 12:00 AM ADVANCED DIRECTIVES Advance Directives and Living Will 07/07/2015 12:00 AM ADVANCED DIRECTIVES * Full Code (Latest Code Status on File) Date Activated Date Inactivated Comments 08/19/2019 2:26 PM 08/21/2019 5:46 PM * Full Code Date Activated Date Inactivated Comments 07/21/2019 4:24 AM 07/22/2019 9:47 PM * Full Code Date Activated Date Inactivated Comments 06/21/2019 3:55 PM 06/23/2019 12:49 PM * Full Code Date Activated Date Inactivated Comments 06/18/2019 2:02 PM 06/21/2019 3:47 PM Care Teams Master [place] Relationship Specialty Start Date End Date Jamison [place] PA-C PCP - General 01/09/19
--- OUTSIDE RECORDS SUMMARY | 2025-07-18 02:19 | XMS_ITS | Clinical Summary ---
Author Organization [facility] Address [facility] [place] [address] Care Team Providers Care Client Services Associate Name Role Phone Alfredo Ruiz MD, Juan Unavailable [phone] [facility] Unavailable [phone] Carlos Douglas MD Unavailable Jamison Lockett Primary Care Provider [phone] Abdulaziz Vazquez MD Unavailable [phone] Manuel Pillai MD Unavailable [phone] Allergies Active Allergy Reactions Criticality Noted Date Comments Metoclopramide Shortness of breath,Rash,Other (See comments) High 11/19/2012 tachycardia , arrhythmia's tachycardia , arrhythmia's regalan Sulfa (Sulfonamide Antibiotics) Urticaria Medium 01/03/2018 Medications docusate sodium (COLACE) 100 mg capsule Take 1 capsule (100 mg total) by mouth gimp tacker before breakfast 8 Active famotidine (PEPCID) 20 mg tablet Take 1 tablet (20 mg total) by mouth gimp tacker before breakfast Active omeprazole (PriLOSEC) 20 mg capsule Take 1 capsule (20 mg total) by mouth gimp tacker before breakfast Active amitriptyline (ELAVIL) 50 mg tablet Take 1.5 tablets (75 mg total) by mouth nightly Active FLUoxetine (PROzac) 20 mg capsule Take 1 capsule (20 mg total) by mouth 3 (three) times a day Active ondansetron ODT (ZOFRAN-ODT) 4 mg disintegrating tablet Take 1 tablet (4 mg total) by mouth every 8 (eight) hours as needed for nausea or vomiting 20 tablet 3 Active polyethylene glycol (MIRALAX) 17 gram packetIndications: constipation Take 1 packet (17 g total) by mouth daily Active SUMAtriptan (IMITREX) 50 mg tablet Take 1 tablet (50 mg total) by mouth as needed 3 Active promethazine (PHENERGAN) 25 mg tablet Take 1 tablet (25 mg total) by mouth every 6 (six) hours as needed 4 Active lisinopriL (PRINIVIL,ZESTRIL) 10 mg tablet Take 1 tablet (10 mg total) by mouth daily Active DULoxetine DR (CYMBALTA) 60 mg capsule Take 1 capsule (60 mg total) by mouth daily Active pregabalin (LYRICA) 200 mg capsule Take 1 capsule (200 mg total) by mouth 2 (two) times a day Active progesterone (PROMETRIUM) 100 mg capsule Take 1 capsule (100 mg total) by mouth daily Active escitalopram (LEXAPRO) 10 mg tablet Active hydrOXYzine (ATARAX) 25 mg tablet Take 1-2 tablets (25-50 mg total) by mouth every 6 (six) hours as needed Active ibuprofen (ADVIL,MOTRIN) 800 mg tablet Take 1 tablet (800 mg total) by mouth every 6 (six) hours as needed for pain Active metroNIDAZOLE (FLAGYL) 500 mg tablet Take 1 tablet (500 mg total) by mouth 2 (two) times a day Active oxyCODONE-acetamin ophen (PERCOCET) 5-325 mg per tablet Take 1 tablet by mouth every 6 (six) hours as needed Active Active Problems Problem Noted Date Diagnosed Date Abdominal pain 03/21/2023 Abdominal pain, epigastric 03/20/2023 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 Generalized abdominal pain 03/15/2023 Nausea and vomiting 03/15/2023 Gastroesophageal reflux disease without esophagi tis 03/15/2023 Essential hypertension 03/15/2023 Gastroparesis 03/15/2023 Anxiety and depression 03/15/2023 Cholelithiasis 04/08/2020 Hypokalemia Surgical History Surgery Date Site/Laterality Comments SECTION 2006, 2012, 2018 DILATION AND CURETTAGE OF UTERUS EXPLORATORY LAPAROTOMY HERNIA REPAIR TUBAL LIGATION 08/09/2018 ERCP with stent placement CHOLECYSTECTOMY 08/19/2019 aborted and cholecystostomy tube was placed and stones were evacuated COLONOSCOPY Medical History Medical History Date Comments Antiphospholipid antibody syndrome GERD (gastroesophageal reflux disease) Gastroparesis Hypertension Gastroesophageal reflux disease without esophagi tis 03/15/2023 Essential hypertension 03/15/2023 Anxiety and depression 03/15/2023 Nausea and vomiting 03/15/2023 Sleep apnea wears CPAP Irritable bowel syndrome Dysmenorrhea Cholelithiasis PONV (postoperative nausea and vomiting) Headache Family History Medical History Relation Name Comments Diabetes Father Hypertension Father Hypertension Mother Lupus Sister Relation Name Status Comments Father Mother Sister Social History Tobacco Use Types Packs/Day Years Used Date Smoking Tobacco: Former Cigarettes Q uit: 03/26/2020 Smokeless Tobacco: Never Tobacco Cessation:Counseling Given: Not Answered Alcohol Use Standard Drinks/Week Comments Not Currently 0 (1 standard drink = 0.6 oz pur e alcohol) Social Connection and Isolation Panel Answer Date Recorded In a typical week, how many times do you talk on the phone with family, friends, or neighbors? More than three times a week 03/21/2023 How often do you get togethe r with friends or relatives? More than three times a week 03/21/2023 How often do you attend chur ch or cheondoism services? Never 03/21/2023 Do you belong to any clubs o r organizations such as buddhist groups, unions, fraternal or athletic groups, or school groups? No 03/21/2023 How often do you attend meet ings of the clubs or organizations you belong to? Never 03/21/2023 Are you , , di vorced, , never , or living with a partner? 03/21/2023 AUDIT-C Answer Date Recorded Q1: How often do you have a drink containing alcohol? Never 01/02/2025 Q2: How many drinks containi ng alcohol do you have on a typical day when you are drinking? Patient does not drink Q3: How often do you have si x or more drinks on one occasion? Never 01/02/2025 Overall Financial Resource Strain (CARDIA) Answe r Date Recorded How hard is it for you to pa y for the very basics like food, housing, medical care, and heating? Not hard at all 03/21/2023 Hunger Vital Sign Answer Date Recorded Within the past 12 months, y ou worried that your food would run out before you got the money to buy more. Never true 03/21/20 23 Within the past 12 months, t he food you bought just didn't last and you didn't have money to get more. Never true 03/21/2023 PRAPARE - Transportation Answer Date Re corded In the past 12 months, has l ack of transportation kept you from medical appointments or from getting medications? No 03/09 In the past 12 months, has l ack of transportation kept you from meetings, work, or from getting things needed for daily living? No 03/21/2023 Housing Stability Vital Sign Answer Júnior e Recorded In the last 12 months, was t here a time when you were not able to pay the mortgage or rent on time? No 03/21/2023 In the last 12 months, how many places have you lived? 1 03/21/2023 In the last 12 months, was t here a time when you did not have a steady place to sleep or slept in a usp (including now)? No 03/21/2023 Personal Safety Answer Date Recorded Have you ever been in or are you currently in a harmful physical or emotional relationship or is someone making you feel afraid or unsafe? 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 Gender Identity Not on file Sexual Orientation Not on file Obstetrics History Last Filed Vital Signs Vital Sign Reading Time Taken Comments Blood Pressure 135/87 01/02/2025 4:30 PM CDT Pulse 85 01/02/2025 4:30 PM CDT Temperature 36.2 C (97.2 F) 01/02/2025 4:00 PM CDT Respiratory Rate 16 01/02/2025 4:15 PM CDT Oxygen Saturation 96% 01/02/2025 4:30 PM CDT Inhaled Oxygen Concentration - - Weight 113 kg (249 lb 3.2 oz) 01/02/2025 8:55 AM CDT Height 170.2 cm (5' 7) 01/02/2025 8:55 AM CDT Body Mass Index 39.03 01/02/2025 8:55 AM CDT Plan of Treatment Health Maintenance Due Date Last Done Comments Cervical Cancer Screening 1987 Depression Screening 1987 Hepatitis C Screening 1987 Varicella Vaccines (1 of 2 - 13+ 2-dose series) 02/14/2000 Regular Well Visit/Exam 18-64 2005 HPV Vaccines (1 - 3-dose SCDM series) 2014 Influenza Vaccine (#1) 2025 07/16/2018, 2011 DTaP/Tdap/Td Vaccine (10 - Td or Tdap) 05/03/2032 05/03/2022, 06/04/2018, 10/22/2017, Additional history exists Hepatitis B Screening Completed 05/26/1997 , 08/30/1996, 07/30/1996 Pneumococcal vaccine <65 Aged Out No longer eligible based on patient's age to complete this topic Medical Devices Explanted Type Area Stencil Cutter Device Identifier Shelf Expiration Date Model / Serial / Lot [employer] Carbone Flexi-Stent 7fr 3cm Small Pigtail Flexible .035in Stent [id number] - [id number] Implanted:Qty: 1 on 03/15/2023 by Abdulaziz Vazquez MD at [facility] Explanted:Qty: 1 on 03/22/2023 by Abdulaziz Vazquez MD at [facility] Stent N/A: Pancreas [employer] 02/05/2027 [id number] / / [id number] [employer] Wallflex 8mm 8.5fr 60mm 194cm Rapid Exchange Full Cover Closed [id number] - [id number] Implanted:Qty: 1 on 03/15/2023 by Abdulaziz Vazquez MD at [facility] Explanted:Qty: 1 on 03/22/2023 by Abdulaziz Vazquez MD at [facility] Stent N/A: Bile Duct [employer] 11/24/2024 [id number] / / [id number] Insurance Advance Directives For more information, please contact: [phone] * Full Code (Latest Code Status on File) Date Activated Date Inactivated Comments 10/21/2024 10:46 AM 10/21/2024 6:08 PM * Full Code Date Activated Date Inactivated Comments 09/25/2023 9:53 AM 09/25/2023 4:15 PM * Full Code Date Activated Date Inactivated Comments 03/21/2023 3:08 AM 03/22/2023 5:11 PM * Full Code Date Activated Date Inactivated Comments 03/15/2023 10:02 AM 03/17/2023 5:58 PM * Full Code Date Activated Date Inactivated Comments 11/07/2022 9:06 AM 11/07/2022 3:12 PM Care Teams Client Services Associate Relationship Specialty Start Date End Date Jamison Lockett PA [address] [place] [address] PCP - General Physician Clinical Abstractor 11/03/22 [place] [address] [place], [place] [id number] Referring Physician Surgery 03/23/20 [place] [address] [place] [address] Referring Physician Surgery 03/30/20 [place] [address] [place], [place] [id number] Consulting Physician General Surgery 04/17/20 Abdulaziz Vazquez MD [address] [place] [address] Consulting Physician Gastroenterology 03/17/23 Manuel Pillai MD [address] [place] [address] Consulting Physician Internal Medicine 01/02/25
--- OUTSIDE RECORDS SUMMARY | 2025-07-18 02:19 | XMS_ITS | Encounter Summary ---
Author Organization [facility] Address [address] [place] [address] Care Team Providers Care Nurse Staff Industrial Name Role Phone Jamison Lockett PA-C Primary Care Provider [phone] Encounter Details Date Type Department Care Team (Late st Contact Info) Description 08/07/2019 Hospital Orders Only [facility] [address] [place], [place] [id number] Joe Ndiaye MD [address] [place] [phone] Social History Tobacco Use Types Packs/Day [...] Rule Out 02/08/2021 02/08/2021 08/30/2021 6:25 PM SUPERINTENDENT ELECTRIC POWER COVID-19 Rule Out 02/08/2021 02/08/2021 08/30/2021 6:27 PM SUPERINTENDENT ELECTRIC POWER COVID-19 Rule Out 12/25/2023 12/25/2023 12/25/2023 8:57 AM CDT documented as of this encounter Care Teams Nurse Staff Industrial Relationship Specialty Start Date End Date Jamison Lockett PA-C PCP - General 01/09/19 documented as of this encounter
--- OUTSIDE RECORDS SUMMARY | 2025-07-18 02:19 | XMS_ITS | Encounter Summary ---
Author Organization [facility] Address [address] [place] [address] Care Team Providers Care Welcome Center Attendant Name Role Phone None, Provider Primary Care Provider Jamison Gandhi PA-C Primary Care Provider [phone] Encounter Details Date Type Department Care Team (Late st Contact Info) Description 12/22/2015 Abstract [facility] CONVERSION [address] [place] [address] , Generic Conversion, Social History Tobacco Use Types Packs/Day Years Used Date Smoking Tobacco: Never Assessed Comments Unknown Sex and Gender Information Value Date Recorded Sex Assigned at Not on file Legal Sex Female 7:52 PM CDT Gender Identity Not on file Sexual Orientation Not on file documented as of this encounter Plan of Treatment Not on file documented as of this encounter Visit Diagnoses Not on filedocumented in this encounter Additional Health Concerns Infection Onset Date Last Indicated Resolved Time MRSA Comment:09/12/19- + abdominal wound 09/19/19- + abdominal wound 09/16/2019 09/16/2019 COVID-19 Rule Out 06/17/2020 06/11/2020 06/17/2020 7:27 AM CDT COVID-19 Rule Out 02/08/2021 02/08/2021 08/30/2021 6:25 PM CHILD CARE LEADER COVID-19 Rule Out 02/08/2021 02/08/2021 08/30/2021 6:27 PM CHILD CARE LEADER COVID-19 Rule Out 12/25/2023 12/25/2023 12/25/2023 8:57 AM CDT documented as of this encounter Care Teams Welcome Center Attendant Relationship Specialty Start Date End Date None, Provider, PCP - General 12/04/18 01/08/19 Jamison Lockett PA-C PCP - General 01/09/19 documented as of this encounter
--- OUTSIDE RECORDS SUMMARY | 2025-07-18 02:19 | XMS_ITS | Encounter Summary ---
Author Organization [facility] Address [address] [place] [address] Care Team Providers Care Leadership Development Instructor Name Role Phone Jamison Lockett PA-C Primary Care Provider [phone] Encounter Details Date Type Department Care Team (Late st Contact Info) Description 07/24/2019 Hospital Follow-up Call [facility] Med/Surg [address] [place] [address] Roxann Valiente RN Social History Tobacco Use [...] Assessment Author Status No 07/22/2019 6:37 PM MOET Melissa Matthew RN Active * Because of a physical, mental, or emotional condition, do you have difficulty doing errands alone such as visiting a doctor's office or shopping? Answer Date of Assessment Author Status No 07/22/2019 6:37 PM MOET Melissa Matthew RN Active documented as of this encounter Mental Status * Because of a physical, mental, or emotional condition, do you have serious difficulty concentrating, remembering, or making decisions? 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
[2025-07-18 12:56] VITALS: BP 145/86; PULSE 81; RESP 18; TEMP 36.6; O2SAT 98; BMI 38.2
[2025-07-18] MEDS: LACTATED RINGERS 1,000 ML 150 ML IV CONT (13:03)
--- NOTE | 2025-07-18 13:12 | WPDANESEPPF ---
Anes - Initial Pre Proc Eval Procedure: Operation Date: 07/18/25 14:15 Proposed Procedures p Esophagogastroduodenoscopy - Dae Pozo MD Date/Time: 07/18/25 13:12 Surgeon: Dae Pozo MD Pre Op Diagnosis: Dysphagia, unspecified Patient Data Age: 40 Gender: F Height: 1.7 m Weight: 110.8 kg Last Vital Signs Temp 36.6 C 07/18/25 12:56 Pulse 81 07/18/25 12:56 Resp 18 07/18/25 12:56 BP 145/86 H 07/18/25 12:56 Pulse Ox 98 07/18/25 12:56 O2 Del Method Room Air 07/18/25 12:56 Allergies Allergy/AdvReac Type Severity Reaction Status Date / Time Sulfa (Sulfonamide Allergy Intermediate Hives Verified 07/18/25 12:54 Antibiotics) metoclopramide (From Reglan) AdvReac Mild panic Verified 07/18/25 12:54 attack Home Medications ?Medication ?Instructions ?Recorded ?Confirmed ?Type omeprazole 20 mg capsule,delayed 20 mg PO DAILY 11/18/21 07/18/25 History release ondansetron HCl 4 mg tablet 4 mg PO Q8H PRN nausea and 01/06/22 07/18/25 Rx vomiting #90 tabs Stool Softener 1 softgel PO PRN 02/10/22 07/09/25 History lisinopril 10 mg tablet 10 mg PO DAILY 07/18/25 07/18/25 History Patient hx anesthesia problems: none Family hx anesthesia problems: none Results Review: All pre-operative results and documents have been reviewed as part of the pre-operative evaluation. [facility] Past Medical History Medical History Nausea High blood pressure GERD (gastroesophageal reflux disease) Peptic ulcer Anxiety and depression Surgical History Surgical History History of cholecystectomy History of endometrial ablation History of laparoscopy History of incisional hernia repair History of delivery History of D&C Family History Family History Father , age 69 Hypertension Family history of diabetes mellitus in first degree relative Heart disease Mother No problems noted. 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 Informed Consent: The patient's anesthetic plan and its attendant risks and benefits were discussed with the patient/family/POA. Questions were solicited and answers provided to the satisfaction of the patient/family/POA.
--- NOTE | 2025-07-18 13:13 | PM.HPGS ---
History of Present Illness History of Present Illness Consent: Risks, benefits, and alternatives have been discussed and questions answered. Patient agrees to proceed with procedure. Chief complaint: Dysphagia, unspecified Narrative: Hilary Yap is a 40 year old female with dysphagia, had esophageal dilation Review of Systems Review of Systems: All systems reviewed & are unremarkable except as noted in HPI and below PMFSH Past Medical History Medical History Nausea High blood pressure GERD (gastroesophageal reflux disease) Peptic ulcer Anxiety and depression Surgical History Surgical History History of cholecystectomy History of endometrial ablation History of laparoscopy History of incisional hernia repair History of delivery History of D&C Family History Family History Father , age 69 Hypertension Family history of diabetes mellitus in first degree relative Heart disease Mother No problems noted. 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 [employer] Spiritual care concerns: No Meds Home Medications and Allergies Home Medications ?Medication ?Instructions ?Recorded ?Confirmed ?Type omeprazole 20 mg capsule,delayed 20 mg PO DAILY 11/18/21 07/18/25 History release ondansetron HCl 4 mg tablet 4 mg PO Q8H PRN nausea and 01/06/22 07/18/25 Rx vomiting #90 tabs Stool Softener 1 softgel PO PRN 02/10/22 07/09/25 History lisinopril 10 mg tablet 10 mg PO DAILY 07/18/25 07/18/25 History Allergies Allergy/AdvReac Type Severity Reaction Status Date / Time Sulfa (Sulfonamide Allergy Intermediate Hives Verified 07/18/25 12:54 Antibiotics) metoclopramide (From Reglan) AdvReac Mild panic Verified 07/18/25 12:54 attack Vital Signs Vital Signs - 24 hr 07/18/25 12:56 Temperature 98 F Pulse Rate 81 Respiratory Rate 18 Blood Pressure 145/86 H Pulse Oximetry 98 Oxygen Delivery Room Air Exam Const: General: comfortable and no acute distress HENMT: Face/Nose/Sinus: Normal nares present Eyes: General: appearance normal, both eyes and all related structures Neck: Neck: no JVD Resp: Auscultation: clear to auscultation bilaterally Cardio: Rate: regular rate Rhythm: regular rhythm GI: Inspection: non-distended GI Palp: Yes Soft to palpation Skin: General skin exam: normal color Extrem: General: normal to inspection Psych: Mental Status: mental status grossly normal Assessment and Plan Assessment and plan (1) Dysphagia: Qualifiers: Dysphagia type: esophageal phase Qualified Code(s): R13.19 - Other dysphagia Code(s): R13.10 - Dysphagia, unspecified Status: Acute Assessment and Plan: egd
--- NOTE | 2025-07-18 13:22 | S_PTH ---
PATIENT: Hilary Yap LOC: [facility]#:[id number] AGE/SX: 40/F ROOM: RE07/18/[address]: Dae Pozo MD : 1985 BED: DIS: 07/18/2025 SPEC #: [id number] RECD: 07/18/25 13:53 STATUS: SHARAD REPriscilla #: [id number] MAKI: 07/18/25 13:[address]: Dae Pozo DEPT: [facility] Surgical RECD BY: Margo Alex Tissues: A - Gastric Biopsy B - Esophageal Biopsy Procedures: Hematoxylin and Eosin Stain Gross and Microscopic Level 4
[2025-07-18 13:23] VITALS: BP 106/62; PULSE 70; RESP 16; O2SAT 99
[2025-07-18 13:33] VITALS: BP 126/94; PULSE 64; RESP 19; O2SAT 99
[2025-07-18 13:43] VITALS: BP 147/94; PULSE 67; RESP 19; O2SAT 100
== END 2025-07-18 13:53 | disposition home or self-care (01) ==
PROVIDERS: Referring Provider Nurse Practitioner Family; Visit Provider Internal Medicine Gastroenterology
PROC: 0DJ08ZZ Inspection of Upper Intestinal Tract, Via Natural or Artificial Opening Endoscopic (ICD-10-PCS; CPT 43239; principal; 2025-07-18 14:15)
DX: R13.19 Other dysphagia (principal); I10 Essential (primary) hypertension; K21.9 Gastro-esophageal reflux disease without esophagitis; F41.8 Other specified anxiety disorders; E66.9 Obesity, unspecified; Z68.38 Body mass index [BMI] 38.0-38.9, adult; Z98.890 Other specified postprocedural states; Z90.49 Acquired absence of other specified parts of digestive tract; Z98.891 History of uterine scar from previous surgery; Z87.891 Personal history of nicotine dependence; Z87.11 Personal history of peptic ulcer disease; Z82.49 Family history of ischemic heart disease and other diseases of the circulatory system
CPT/HCPCS: 43239; 43450; 88305; J2704; J7120